=== PATIENT | male | born 1990 | race Two or more races ===

== ENCOUNTER 2019-04-05 08:26 | Emergency (ER) | payer OTHER, MEDICAID ==
[~2019-04-05] VITALS: Ht 175.3 cm; Wt 75.0 kg
[2019-04-05] MEDS ORDERED: TRAZODONE HCL 50MG TABLET PO STA (08:57)
[2019-04-05] MEDS ORDERED: RISPERIDONE 1MG TABLET PO STA (08:57)
[2019-04-05] MEDS ORDERED: ACETAMINOPHEN 325MG TABLET PO ONE (09:00)
[2019-04-05 09:18] VITALS: BP 129/81
== END 2019-04-05 09:28 | disposition home or self-care (01) ==
LOC: ER 08:26
DX: R51 Headache (principal); Z76.0 Encounter for issue of repeat prescription; F20.9 Schizophrenia, unspecified; F31.9 Bipolar disorder, unspecified
CPT/HCPCS: 99284